=== PATIENT | male | born 1980 | race Caucasian/White ===

== ENCOUNTER → 2019-11-21 | Outpatient (CLI) | payer MEDICAID ==
[~2019-11-21] MED LIST: DICL50TA4 PO; OXYC1TAB87 PO
[2019-11-21 15:35] LABS: SEMEN VOLUME 4.6 ML (1.5-5.0)
== END ==
LOC: LAB 14:31
PROVIDERS: ATTEND Family Medicine
DX: N46.9 Male infertility, unspecified (principal)
CPT/HCPCS: 89320

== ENCOUNTER 2019-11-22 16:15 | Emergency (ER) | payer MEDICAID ==
[~2019-11-22] VITALS: Ht 180.3 cm; Wt 90.7 kg
[2019-11-22] MEDS ORDERED: KETOROLAC 60 MG/2 ML VIAL ONE (16:20)
[2019-11-22] MEDS ORDERED: morphine INJ 10 MG/ML 1ML (SYR OR VIAL) ONE (16:20)
[2019-11-22] MEDS ORDERED: ACETAMINOPHEN 500 MG TAB (TYLENOL) ONE (16:20)
[2019-11-22] MEDS ORDERED: TETANUS,DIPTH,PERTUSS P/F (BOOSTRIX) 0.5 ML VIAL IM ONE ×2 (16:20→16:30)
[2019-11-22] MEDS ORDERED: morphine INJ 10 MG/ML 1ML (SYR OR VIAL) IM STA (16:24)
[2019-11-22] MEDS ORDERED: ACETAMINOPHEN 500 MG TAB (TYLENOL) PO ONE (16:30)
[2019-11-22] MEDS ORDERED: KETOROLAC 60 MG/2 ML VIAL IM ONE (16:30)
[2019-11-22] MEDS ORDERED: NEO/POLY/BAC (NEOSPORIN) OINT 15 GM TUBE TOP SCH (16:45)
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
[2019-11-22] MEDS ORDERED: DICL50TA4 PO (17:02)
[2019-11-22] MEDS ORDERED: OXYC1TAB87 PO (17:02)
[2019-11-22] MEDS ORDERED: oxyCODONE/APAP 5/325MG (PERCOCET 5) TABLET ONE (17:07)
[2019-11-22] MEDS ORDERED: oxyCODONE/APAP 5/325MG (PERCOCET 5) TABLET PO ONE (17:15)
[2019-11-22 17:20] VITALS: BP 139/98
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
== END 2019-11-22 17:20 | disposition home or self-care (01) ==
LOC: EDUNIT# 16:15 → ER FS 16:17
DX: T23.262A Burn of second degree of back of left hand, initial encounter (principal); T25.221A Burn of second degree of right foot, initial encounter; T31.0 Burns involving less than 10% of body surface; Z23 Encounter for immunization; X10.2XXA Contact with fats and cooking oils, initial encounter
CPT/HCPCS: 90715; 99284

== ENCOUNTER 2022-08-27 09:11 | Emergency (ER) | payer MEDICAID ==
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
== END 2022-08-27 09:52 | disposition left against medical advice (07) ==
LOC: EDUNIT# 09:11 → ER FS 09:12
DX: H57.89 Other specified disorders of eye and adnexa (principal); R51.9 Headache, unspecified

== ENCOUNTER → 2023-04-17 | Outpatient (CLI) | payer MEDICAID ==
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
== END ==
LOC: RAD 09:32
PROVIDERS: ATTEND Nurse Practitioner Primary Care
DX: S49.92XS Unspecified injury of left shoulder and upper arm, sequela (principal); S43.005S Unspecified dislocation of left shoulder joint, sequela; S42.202S Unspecified fracture of upper end of left humerus, sequela; S43.402S Unspecified sprain of left shoulder joint, sequela; X58.XXXS Exposure to other specified factors, sequela
CPT/HCPCS: 73221